=== PATIENT | male | born 1985 | race Caucasian/White ===

== ENCOUNTER 2017-02-19 11:26 | Observation (INO) | payer OTHER ==
[~2017-02-19 11:26] MED LIST: AMOX500T PO; MOBI7.5S PO; OXYC15TA PO; XANA2TAB2 PO
[2017-02-19 11:28] VITALS: BP 145/91; PULSE 77; RESP 14; TEMP 98.6; O2SAT 95
--- NOTE | 2017-02-19 12:15 | RADRPT ---
EXAM DATE/TIME: 02/19/2017 12:03 [place] COMPARISON: No previous studies available for comparison. INDICATIONS : Chest pain. MEDICAL HISTORY : None. SURGICAL HISTORY : None. ENCOUNTER: Initial ACUITY: 2 days PAIN SCORE: 3/10 LOCATION: Bilateral chest FINDINGS: PA and lateral views of the chest demonstrate the lungs to be symmetrically aerated without evidence of mass, infiltrate or effusion. The cardiomediastinal contours are unremarkable. Osseous structure s are intact. CONCLUSION: 1. No active disease Yaya Hernandez MD on February 19, 2017 at 12:12 Board Certified Radiologist. This report was verified electronically.
[2017-02-19 12:31] LABS: AUTOMATED NEUTROPHIL # 4.5 TH/MM3 (1.8-7.7); BASOPHIL % 0.4 % (0.0-2.0); EOSINOPHIL # 0.1 TH/MM3 (0-0.4); EOSINOPHIL % 0.9 % (0.0-4.0); HEMATOCRIT 40.5 % (39.0-51.0); HEMOGLOBIN 14.3 GM/DL (13.0-17.0); LYMPH % 28.2 % (9.0-44.0); MEAN CELL VOLUME 90.4 FL (80.0-100.0); MEAN CORPUSCULAR HEMOGLOBIN 31.9 PG (27.0-34.0); MEAN CORPUSCULAR HGB CONC 35.4 % (32.0-36.0); MEAN PLATELET VOLUME 7.3 FL (7.0-11.0); MONOCYTE # 0.6 TH/MM3 (0-0.9); NEUT % 62.5 % (16.0-70.0); PLATELET COUNT 323 TH/MM3 (150-450); RED BLOOD COUNT 4.48 MIL/MM3 (4.50-5.90); RED CELL DISTRIBUTION WIDTH 13.3 % (11.6-17.2); WHITE BLOOD COUNT 7.2 TH/MM3 (4.0-11.0)
[2017-02-19 12:41] LABS: PROTHROMBIN TIME - PATIENT 10.1 SEC (9.8-11.6)
[2017-02-19 13:00] LABS: AST (GOT) 26 U/L (15-37); BICARBONATE 28.3 MEQ/L (21.0-32.0); BLOOD UREA NITROGEN 12 MG/DL (7-18); CALCIUM 9.4 MG/DL (8.5-10.1); CHLORIDE 102 MEQ/L (98-107); CREATININE 0.84 MG/DL (0.60-1.30); GLOMERULAR FILTRATION RATE 108 ML/MIN (>89); GLUCOSE,RANDOM 86 MG/DL (74-106); LIPASE 60 U/L (73-393); SODIUM (NA) 136 MEQ/L (136-145)
[2017-02-19 13:01] LABS: ALT (GPT) 33 U/L (12-78)
[2017-02-19 13:04] LABS: ALKALINE PHOSPHATASE 76 U/L (45-117); TOTAL BILIRUBIN ADULT 0.6 MG/DL (0.2-1.0); TOTAL PROTEIN 8.2 GM/DL (6.4-8.2); TROPONIN I LESS THAN 0.02 NG/ML (0.02-0.05)
[2017-02-19] MEDS ORDERED: METH10CO3 PO (14:16)
--- NOTE | 2017-02-19 15:13 | PD ---
Physical Exam Date Seen by Provider: Feb 19, 2017 Narrative This patient presents with chest pain which started while work. He does strenuous work. Data Data Last Documented VS Vital Signs Date Time Temp Pulse Resp B/P (MAP) Pulse Ox O2 Delivery O2 Flow Rate FiO2 02/19/17 11:28 98.6 77 14 145/91 (109) 95 Orders Orders Electrocardiogram (02/19/17 11:52) Ckmb (Isoenzyme) Profile (02/19/17 11:52) Complete Blood Count With Diff (02/19/17 11:52) Comprehensive Metabolic Panel (02/19/17 11:52) Magnesium (Mg) (02/19/17 11:52) Prothrombin Time / Inr (Pt) (02/19/17 11:52) Act Partial Throm Time (Ptt) (02/19/17 11:52) Troponin I (02/19/17 11:52) Lipase (02/19/17 11:52) Chest, Pa & Lat (02/19/17 11:52) CKMB (02/19/17 12:15) CKMB% (02/19/17 12:15) Labs Laboratory Tests Test 02/19/17 12:15 White Blood Count 7.2 TH/MM3 Red Blood Count 4.48 MIL/MM3 Hemoglobin 14.3 GM/DL Hematocrit 40.5 % Mean Corpuscular Volume 90.4 FL Mean Corpuscular Hemoglobin 31.9 PG Mean Corpuscular Hemoglobin Concent 35.4 % Red Cell Distribution Width 13.3 % Platelet Count 323 TH/MM3 Mean Platelet Volume 7.3 FL Neutrophils (%) (Auto) 62.5 % Lymphocytes (%) (Auto) 28.2 % Monocytes (%) (Auto) 8.0 % Eosinophils (%) (Auto) 0.9 % Basophils (%) (Auto) 0.4 % Neutrophils # (Auto) 4.5 TH/MM3 Lymphocytes # (Auto) 2.0 TH/MM3 Monocytes # (Auto) 0.6 TH/MM3 Eosinophils # (Auto) 0.1 TH/MM3 Basophils # (Auto) 0.0 TH/MM3 CBC Comment AUTO DIFF Differential Comment AUTO DIFF CONFIRMED Prothrombin Time 10.1 SEC Prothromb Time International Ratio 1.0 RATIO Activated Partial Thromboplast Time 29.4 SEC Blood Urea Nitrogen 12 MG/DL Creatinine 0.84 MG/DL Random Glucose 86 MG/DL Total Protein 8.2 GM/DL Albumin 4.0 GM/DL Calcium Level 9.4 MG/DL Magnesium Level 2.0 MG/DL Alkaline Phosphatase 76 U/L Aspartate Amino Transf (AST/SGOT) 26 U/L Alanine Aminotransferase (ALT/SGPT) 33 U/L Total Bilirubin 0.6 MG/DL Sodium Level 136 MEQ/L Potassium Level 4.9 MEQ/L Chloride Level 102 MEQ/L Carbon Dioxide Level 28.3 MEQ/L Anion Gap 6 MEQ/L Estimat Glomerular Filtration Rate 108 ML/MIN Total Creatine Kinase 167 U/L Creatine Kinase MB 3.0 NG/ML Troponin I LESS THAN 0.02 NG/ML Lipase 60 U/L MDM Supervised Visit with WILLY: Yes Interpretation(s) His EKG shows a sinus rhythm with no acute ischemic change. Narrative Course I, Dr. Ladd, have reviewed the advance practice practitioner's documentation and am in agreement, met with the patient face to face, made the diagnosis, and the medical decision making was done by me. *My assessment and Findings: Patient is awake and alert and does not appear to be in any acute distress. He is agreeable to admission to the chest pain center for further evaluation of his chest pain. Please see Monica Mejia NP's note for results of laboratory and radiographic evaluation, ED course, final diagnosis and disposition Pat Ladd MD Feb 19, 2017 15:13
--- NOTE | 2017-02-19 15:27 | PD ---
HPI Chief Complaint: Chest Pain Time Seen by Provider: 14:38 Travel History International Travel<30 days: No Contact w/Intl Traveler<30days: No Traveled to known affect area: No History of Present Illness HPI 31 year old male patient presents to the emergency department for evaluation of chest pain that started yesterday. Pain started when patient was at work. He worked building and digging pools. Patient describes the pain as substernal achy and pressure that radiates into the epigastric region. Patient rates the pain as a 1/10 that increases to a 3/10 intermittently. Patient states he felt dizzy and lightheaded when the pain started. He states that position sometimes helps the pain ease, but no exacerbating factors. Pain is not reproducible to palpation. Movement does not affect the pain. He denies any nausea, vomiting, fevers, chills, dysuria, hematuria. Patient denies any family history of cardiac disease. Patient has no major medical history outside chronic back pain. 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 Resting comfortably in bed. SKIN: Focused skin assessment warm/dry. HEAD: Normocephalic. Atraumatic. EYES: No scleral icterus. No injection or drainage. NECK: Supple, trachea midline. No JVD or lymphadenopathy. CARDIOVASCULAR: Regular rate and rhythm without murmurs, gallops, or rubs. RESPIRATORY: Breath sounds equal bilaterally. No accessory muscle use. GASTROINTESTINAL: Abdomen soft, non-tender, nondistended. MUSCULOSKELETAL: No cyanosis, or edema. BACK: Nontender without obvious deformity. No CVA tenderness. Data Data Last Documented VS Vital Signs Date Time Temp Pulse Resp B/P (MAP) Pulse Ox O2 Delivery O2 Flow Rate FiO2 02/19/17 11:28 98.6 77 14 145/91 (109) 95 Orders Orders Electrocardiogram (02/19/17 11:52) Ckmb (Isoenzyme) Profile (02/19/17 11:52) Complete Blood Count With Diff (02/19/17 11:52) Comprehensive Metabolic Panel (02/19/17 11:52) Magnesium (Mg) (02/19/17 11:52) Prothrombin Time / Inr (Pt) (02/19/17 11:52) Act Partial Throm Time (Ptt) (02/19/17 11:52) Troponin I (02/19/17 11:52) Lipase (02/19/17 11:52) Chest, Pa & Lat (02/19/17 11:52) CKMB (02/19/17 12:15) CKMB% (02/19/17 12:15) Labs Laboratory Tests Test 02/19/17 12:15 White Blood Count 7.2 TH/MM3 Red Blood Count 4.48 MIL/MM3 Hemoglobin 14.3 GM/DL Hematocrit 40.5 % Mean Corpuscular Volume 90.4 FL Mean Corpuscular Hemoglobin 31.9 PG Mean Corpuscular Hemoglobin Concent 35.4 % Red Cell Distribution Width 13.3 % Platelet Count 323 TH/MM3 Mean Platelet Volume 7.3 FL Neutrophils (%) (Auto) 62.5 % Lymphocytes (%) (Auto) 28.2 % Monocytes (%) (Auto) 8.0 % Eosinophils (%) (Auto) 0.9 % Basophils (%) (Auto) 0.4 % Neutrophils # (Auto) 4.5 TH/MM3 Lymphocytes # (Auto) 2.0 TH/MM3 Monocytes # (Auto) 0.6 TH/MM3 Eosinophils # (Auto) 0.1 TH/MM3 Basophils # (Auto) 0.0 TH/MM3 CBC Comment AUTO DIFF Differential Comment AUTO DIFF CONFIRMED Prothrombin Time 10.1 SEC Prothromb Time International Ratio 1.0 RATIO Activated Partial Thromboplast Time 29.4 SEC Blood Urea Nitrogen 12 MG/DL Creatinine 0.84 MG/DL Random Glucose 86 MG/DL Total Protein 8.2 GM/DL Albumin 4.0 GM/DL Calcium Level 9.4 MG/DL Magnesium Level 2.0 MG/DL Alkaline Phosphatase 76 U/L Aspartate Amino Transf (AST/SGOT) 26 U/L Alanine Aminotransferase (ALT/SGPT) 33 U/L Total Bilirubin 0.6 MG/DL Sodium Level 136 MEQ/L Potassium Level 4.9 MEQ/L Chloride Level 102 MEQ/L Carbon Dioxide Level 28.3 MEQ/L Anion Gap 6 MEQ/L Estimat Glomerular Filtration Rate 108 ML/MIN Total Creatine Kinase 167 U/L Creatine Kinase MB 3.0 NG/ML Troponin I LESS THAN 0.02 NG/ML Lipase 60 U/L MDM Medical Decision Making Medical Screen Exam Complete: Yes Emergency Medical Condition: Yes Differential Diagnosis Differential diagnosis include but not limited to CAD, electrolyte abnormality, arrhythmia Narrative Course Blood work, EKG and chest x-ray obtained in triage before patient received a bed placement. CBC, CMP, Mag, PT/INR, Troponin, CK-MB, Lipase ordered and pending. Chest x-ray ordered and pending. EKG ordered and interpreted. EKG shows NSR with HR 63. Chest x-ray shows no active disease. CBC no acute abnormality CMP shows no acute abnormality PT/INR shows no acute abnormality Trop less than 0.02 Lipase 60 Based on patient's symptoms, clinical presentation, lab results, radiological results, vital sign review and physical exam it is prudent to admit the patient to the hospital's chest pain center for further evaluation, serial enzymes and EKG. Patient is agreeable to this plan of care and will be admitted at this time. Diagnosis Primary Impression: Chest pain Qualified Codes: R07.9 - Chest pain, unspecified Admitting Information Admitting Physician Requests: Monica Pickens Feb 19, 2017 15:27
[2017-02-19] MEDS ORDERED: ONDANSETRON HCL 4 MG/2 ML VIAL IV PUSH PRN (15:45)
[2017-02-19] MEDS ORDERED: SODIUM CHLORIDE 0.9% FLUSH 10 ML FLUSH IV FLUSH PRN (15:45)
[2017-02-19] MEDS ORDERED: NITROGLYCERIN 0.4 MG SL 25 TABS/BTL SL PRN (15:45)
[2017-02-19] MEDS ORDERED: ACETAMINOPHEN 500 MG CPLT PO PRN (15:45)
--- NOTE | 2017-02-19 16:33 | HHI.HP ---
HPI Primary Care Physician No Primary Care Physician Chief Complaint Chest pain History of Present Illness 31 year old male with history of chronic pain back presents to ER for further evaluation of chest pain. Onset yesterday morning around 9 am while at work. Location substernal. Characterized as "cramping." Severity varies from mild to moderate intensity. No radiation of pain. Duration constant, waxing and waning in intensity. Moderate discomfort can vary from 1- 5 minutes and sometimes up to one hour, then followed by mild cramping. Reports when discomfort is " thought to be gone I still know it's there." Associated symptoms of "maybe slight shortness of breath." Yesterday x1 episode of diaphoresis and today x1 episode of nausea. Denies every vomiting. No know precipitating or relieving factors. Denies similar pain in the past. No recent illness in the past 6 weeks. No particular movement makes pain better or worse. Endorses recent tooth ache and taking 1600mg ibuprofen Q4-6H x3 days. Toothache has improved since yesterday therefore quit taking ibuprofen. Review of Systems General: No fatigue,weakness, fever, chills, or recent illness change in appetite. Has been his general state of health. No recent injury or trauma. HEENT: No MATTHEWS, no vision changes, no nasal congestion or drainage, no dysphasia CV: Continues to have mild chest pain as stated above. No pressure. RESP: No SOB, cough, wheeze, or recent URI. GI: Nausea has improved. No vomiting, bowel changes, diarrhea, constipation, or pain. : No dysuria, urgency, frequency EXT: No lower leg edema, no paraesthesias MS: No discomfort or change in ROM NEURO: No change in memory, difficulty with balance, LOC, or motor/sensory deficits PSYCH: No anxiety, depression SKIN: No rashes, no concerning lesions Past Family Social History Allergies: Coded Allergies: No Known Allergies (Verified Allergy, Unknown, 02/19/17) Past Medical History Chronic back pain, past substance abuse using heroin Past Surgical History Right forearm surgery Reported Medications Reported Meds & Active Scripts Active Reported Methadone Intensol Liq (Methadone HCl) 10 Mg/Ml Conc 190 Mg PO DAILY Active Ordered Medications Current Medications Medications (Trade) Dose Ordered Sig/Barron Route Start Time Stop Time Status Last Admin (NS Flush) 2 ml UNSCH PRN IV FLUSH 02/19/17 15:45 (NS Flush) 2 ml BID IV FLUSH 02/19/17 21:00 (Tylenol) 500 mg Q4H PRN PO 02/19/17 15:45 (Zofran Inj) 4 mg Q6H PRN IV PUSH 02/19/17 15:45 (Nitrostat Sl) 0.4 mg Q5M PRN SL 02/19/17 15:45 (Aspirin) 325 mg DAILY PO 02/20/17 09:00 Family History Noncontributory for early onset cardiovascular disease. Mother last year from pancreatic cancer. Social History No known diabetes, hypertension, or hyperlipidemia. Current smoker 1/2 pack daily. Denies any alcohol or illegal drugs. Endorses past heroin abuse and currently taking Methadone. Endorses an active lifestyle. Works installing pools. Past cardiac testing None Physical Exam Vital Signs Vital Signs Date Time Temp Pulse Resp B/P (MAP) Pulse Ox O2 Delivery O2 Flow Rate FiO2 02/19/17 11:28 98.6 77 14 145/91 (109) 95 Physical Exam GENERAL: Alert WN, WD, NAD, male HEAD: NC, AT EYES: Sclera clear, conjunctiva without injection ENT: Mucous membranes pink and moist NECK: Supple, no masses, trachea midline CV: RRR, without murmur, rub, gallop, no JVD, S1-S2 no S3-S4. Chest wall nontender with palpation. RESP: Clear lungs throughout bilateral, no crackles, wheeze, rhonchi, symmetrical chest rise, nonlabored, able to speak in full sentences ABD: Soft, NT, ND, no masses, positive bowel tones EXT: Pulses +24, no dependent edema MS: Normal tone 4 extremities, nontender, no obvious deformities, full range of motion NEURO: CN II through CN XII grossly intact, motor strength 5/5 PSYCH: A+O 3, flat affect, appropriate speech, insight and judgment SKIN: Normal turgor, normal texture, no lesions, no rashes, brisk cap refill, even hair distribution Laboratory Laboratory Tests Test 02/19/17 12:15 White Blood Count 7.2 Red Blood Count 4.48 Hemoglobin 14.3 Hematocrit 40.5 Mean Corpuscular Volume 90.4 Mean Corpuscular Hemoglobin 31.9 Mean Corpuscular Hemoglobin Concent 35.4 Red Cell Distribution Width 13.3 Platelet Count 323 Mean Platelet Volume 7.3 Neutrophils (%) (Auto) 62.5 Lymphocytes (%) (Auto) 28.2 Monocytes (%) (Auto) 8.0 Eosinophils (%) (Auto) 0.9 Basophils (%) (Auto) 0.4 Neutrophils # (Auto) 4.5 Lymphocytes # (Auto) 2.0 Monocytes # (Auto) 0.6 Eosinophils # (Auto) 0.1 Basophils # (Auto) 0.0 CBC Comment AUTO DIFF Differential Comment AUTO DIFF CONFIRMED Prothrombin Time 10.1 Prothromb Time International Ratio 1.0 Activated Partial Thromboplast Time 29.4 Blood Urea Nitrogen 12 Creatinine 0.84 Random Glucose 86 Total Protein 8.2 Albumin 4.0 Calcium Level 9.4 Magnesium Level 2.0 Alkaline Phosphatase 76 Aspartate Amino Transf (AST/SGOT) 26 Alanine Aminotransferase (ALT/SGPT) 33 Total Bilirubin 0.6 Sodium Level 136 Potassium Level 4.9 Chloride Level 102 Carbon Dioxide Level 28.3 Anion Gap 6 Estimat Glomerular Filtration Rate 108 Total Creatine Kinase 167 Creatine Kinase MB 3.0 Troponin I LESS THAN 0.02 Lipase 60 Result Diagram: 02/19/17 1215 02/19/17 1215 Imaging Last Impressions Chest X-Ray 02/19/17 1152 Signed Impressions: Service Date/Time: Sunday, February 19, 2017 12:03 - CONCLUSION: 1. No active disease Yaya Hernandez MD Course EKG Normal sinus rhythm, normal axis, no ST or T-segment changes Caprini VTE Risk Assessment Caprini VTE Risk Assessment: No/Low Risk (score <= 1) Caprini Risk Assessment Model Point Value = 1 Point Value = 2 Point Value = 3 Point Value = 5 Age 41-60 Minor surgery BMI > 25 kg/m2 Swollen legs Varicose veins or History of unexplained or recurrent spontaneous Oral contraceptives or hormone replacement Sepsis (< 1 month) Serious lung disease, including pneumonia (< 1 month) Abnormal pulmonary function Acute myocardial infarction Congestive heart failure (< 1 month) History of inflammatory bowel disease Medical patient at bed rest Age 61-74 Arthroscopic surgery Major open surgery (> 45 min) Laparoscopic surgery (> 45 min) Malignancy Confined to bed (> 72 hours) Immobilizing plaster cast Central venous access Age >= 75 History of VTE Family history of VTE Factor V Leiden Prothrombin [id number] Lupus anticoagulant Anticardiolipin antibodies Elevated serum homocysteine Heparin-induced thrombocytopenia Other congenital or acquired thrombophilia Stroke (< 1 month) Elective arthroplasty Hip, pelvis, or leg fracture Acute spinal cord injury (< 1 month) Prophylaxis Regimen Total Risk Factor Score Risk Level Prophylaxis Regimen 0-1 Low Early ambulation 2 Moderate Order ONE of the following: *Sequential Compression Device (SCD) *Heparin 5000 units SQ BID 3-4 Higher Order ONE of the following medications: *Heparin 5000 units SQ TID *Enoxaparin/Lovenox 40 mg SQ daily (WT < 150 kg, CrCl > 30 mL/min) *Enoxaparin/Lovenox 30 mg SQ daily (WT < 150 kg, CrCl > 10-29 mL/min) *Enoxaparin/Lovenox 30 mg SQ BID (WT < 150 kg, CrCl > 30 mL/min) AND/OR *Sequential Compression Device (SCD) 5 or more Highest Order ONE of the following medications: *Heparin 5000 units SQ TID (Preferred with Epidurals) *Enoxaparin/Lovenox 40 mg SQ daily (WT < 150 kg, CrCl > 30 mL/min) *Enoxaparin/Lovenox 30 mg SQ daily (WT < 150 kg, CrCl > 10-29 mL/min) *Enoxaparin/Lovenox 30 mg SQ BID (WT < 150 kg, CrCl > 30 mL/min) AND *Sequential Compression Device (SCD) Assessment and Plan Assessment and Plan #1 Atypical chest pain-admitted chest pain center. Ruled out with 3 sets of EKGs and cardiac enzymes. Will be seen and evaluated by Dr. Rupa Weller. Discussed possible exercise stress test later this evening, this will be determined after evaluation by field traffic investigator. Not unreasonable to consider stress testing after 2 sets of normal EKG and cardiac testing. Mostly likely will discharge home later this evening as chest pain atypical in nature being constant since yesterday. #2 Tobacco use-strongly encouraged and stressed the importance of tobacco cessation. Instructed to quit smoking. Jojo Cortez Feb 19, 2017 16:33
[2017-02-19 17:02] VITALS: BP 143/69; PULSE 63; RESP 20; TEMP 98.8; O2SAT 98
[2017-02-19 17:54] LABS: TROPONIN I LESS THAN 0.02 NG/ML (0.02-0.05)
--- NOTE | 2017-02-19 18:54 | HHI.DCPOC ---
Discharge Care Plan Diagnosis: (1) Tobacco abuse (2) Atypical chest pain Goals to Promote Your Health * To prevent worsening of your condition and complications * To maintain your health at the optimal level Directions to Meet Your Goals Take your medications as prescribed Follow your dietary instruction Follow activity as directed Keep your appointments as scheduled Take your immunizations and boosters as scheduled If your symptoms worsen call your PCP, if no PCP go to Urgent Care Center or Emergency Room Smoking is Dangerous to Your Health. Avoid second hand smoke Call the 24-hour hour crisis hotline for domestic abuse at Jojo Cortez Feb 19, 2017 18:54
[2017-02-19 20:32] LABS: TROPONIN I LESS THAN 0.02 NG/ML (0.02-0.05)
[2017-02-19] MEDS ORDERED: SODIUM CHLORIDE 0.9% FLUSH 10 ML FLUSH IV FLUSH SCH (21:00)
[2017-02-20] MEDS ORDERED: ASPIRIN 325 MG TAB PO SCH (09:00)
--- NOTE | 2017-02-20 09:21 | EKG ---
Date Performed: 02/19/2017 Time Performed: 16:34:12 PTAGE: 31 years EKG: Sinus rhythm NORMAL ECG PREVIOUS TRACING : 02/19/2017 14.10 Since previous tracing, no significant change noted DOCTOR: Yayo Bonilla Interpretating Date/Time 02/20/2017 09:20:42
--- NOTE | 2017-02-20 09:24 | EKG ---
Date Performed: 02/19/2017 Time Performed: 14:10:32 PTAGE: 31 years EKG: Sinus rhythm NORMAL ECG NO PREVIOUS TRACING DOCTOR: Yayo Bonilla Interpretating Date/Time 02/20/2017 09:22:31
--- NOTE | 2017-02-20 09:26 | TR ---
Date Performed: 02/19/2017 Time Performed: 18:25:49 DOCTOR: Yayo Bonilla DRUG LIST: CLINICAL HISTORY: REASON FOR TEST: Chest pain REASON FOR ENDING: OBSERVATION: CONCLUSION: Alexandro protocol completed. Stopped sec to leg fatigue. Speed modified in stage 4. Max imum AT=687 Target HR Achieved=84.0% Maximum TG=833/86 Total Exercise Time=9:14. No reprod chest pain . No ectopy. No st t segment changes to sugg ischemia. Good exercise tolerance. Normal bp response. R ecovery quick and unremarkable. COMMENTS: Patient exercised using the Alexandro protocol. No electrocardiographic changes were seen to suggest ischemia. Hemodynamic response to exercise was normal. No significant arrhythmia was prese nt.
== END 2017-02-19 19:48 | disposition home or self-care (01) ==
LOC: NEPD 11:26 → NEDA 15:29 → NEPHCDU 16:54
PROVIDERS: ADMIT Internal Medicine Interventional Cardiology; ATTEND Internal Medicine Interventional Cardiology
DX: R07.89 Other chest pain (principal); F17.210 Nicotine dependence, cigarettes, uncomplicated; R42 Dizziness and giddiness; M54.9 Dorsalgia, unspecified; G89.29 Other chronic pain; R61 Generalized hyperhidrosis; R11.0 Nausea; K08.89 Other specified disorders of teeth and supporting structures
CPT/HCPCS: 71046; 80053; 82550; 82552; 83690; 83735; 84484; 85025; 85610; 85730; 93005; 93017; 99285; G0378